=== PATIENT | male | born 1940 | race Caucasian/White ===

== ENCOUNTER → 2017-08-22 | Outpatient (CLI) | payer MEDICARE, OTHER | END | disposition home or self-care (01) | LOC: PUL 10:49 | DX: J84.112 Idiopathic pulmonary fibrosis (principal) | CPT/HCPCS: 94010; 94726; 94729 ==

== ENCOUNTER → 2018-03-21 | Outpatient (CLI) | payer MEDICARE, OTHER | END | disposition home or self-care (01) | LOC: PUL 09:05 | DX: J84.10 Pulmonary fibrosis, unspecified (principal) | CPT/HCPCS: 94010; 94726; 94729 ==

== ENCOUNTER → 2018-09-19 | Outpatient (CLI) | payer MEDICARE, OTHER | END | disposition home or self-care (01) | LOC: PUL 09:26 | DX: J84.10 Pulmonary fibrosis, unspecified (principal) | CPT/HCPCS: 94010; 94726; 94729 ==